=== PATIENT | female | born 1975 | race Hispanic/Latino ===

== ENCOUNTER → 2023-09-17 07:52 | Outpatient (REF) | payer OTHER, SELFPAY ==
[2023-09-17 08:59] LABS: HDL Cholesterol 35 mg/dl; LDL Cholesterol, Calculated 80 mg/dl; Total Cholesterol 156 mg/dl (50-199); Triglyceride 205 mg/dl (10-149); Very Low Density Lipoprotein 41 mg/dl (0-30)
[2023-09-17 09:16] LABS: Free T3 3.41 pg/ml (2.77-5.27); Free T4 1.03 ng/dl (0.78-2.19); Vitamin D, 25-OH*** 37.4 ng/mL (30-80)
[2023-09-17 09:28] LABS: TSH 2.11 uIU/ml (0.47-4.68)
== END ==
LOC: REG 07:52
PROVIDERS: ATTENDING PHYSICIAN Nurse Practitioner Adult Health
DX: E05.90 Thyrotoxicosis, unspecified without thyrotoxic crisis or storm (principal); E78.1 Pure hyperglyceridemia; E55.9 Vitamin D deficiency, unspecified
CPT/HCPCS: 80061; 82306; 84439; 84443; 84481

== ENCOUNTER → 2024-01-03 09:18 | Outpatient (REF) | payer OTHER, SELFPAY ==
[2024-01-03 10:10] LABS: Hematocrit 38.5 % (37.0-47.0); Hemoglobin 13.2 g/dL (12.0-16.0); Mean Corp Hgb Conc. 34.3 g/dL (33.0-37.0); Mean Corpuscular Hgb 30.6 pg (27.0-31.0); Mean Corpuscular Volume 89.1 fL (81.0-99.0); Mean Platelet Volume 10.1 fL (7.4-10.4); Platelet Count 264 10^3/uL (130-400); Red Blood Cell Count 4.32 10^6/uL (4.20-5.40); Red Cell Dist. Width 12.2 % (11.5-14.5); White Blood Cell Count 6.3 10^3/uL (4.8-10.8)
[2024-01-03 10:49] LABS: ALT (SGPT) 35 U/L (0-35); AST (SGOT) 25 U/L (14-36); Albumin 4.3 g/dl (3.5-5.0); Alkaline Phosphatase 78 U/L (38-126); Blood Urea Nitrogen 18 mg/dl (7-17); Calcium 9.5 mg/dl (8.4-10.2); Carbon Dioxide 26 mmol/L (22-30); Chloride 106 mmol/L (98-107); Glucose 98 mg/dl (70-99); Potassium 4.4 mmol/L (3.5-5.1); Sodium 141 mmol/L (135-145); Total Bilirubin 0.4 mg/dl (0.2-1.3); Total Protein 7.4 g/dl (6.3-8.2); eGFR > 60.00
[2024-01-03 11:02] LABS: Free T3 4.06 pg/ml (2.77-5.27); Free T4 0.93 ng/dl (0.78-2.19)
[2024-01-03 11:15] LABS: TSH 1.08 uIU/ml (0.47-4.68)
== END ==
LOC: CLINIC 09:18
PROVIDERS: ATTENDING PHYSICIAN Nurse Practitioner Adult Health
DX: E05.90 Thyrotoxicosis, unspecified without thyrotoxic crisis or storm (principal); D50.9 Iron deficiency anemia, unspecified
CPT/HCPCS: 36415; 80053; 84439; 84443; 84481; 85027

== ENCOUNTER → 2024-04-03 11:40 | Outpatient (REF) | payer OTHER, SELFPAY ==
[2024-04-03 13:46] LABS: HDL Cholesterol 39 mg/dl; LDL Cholesterol, Calculated 97 mg/dl; Total Cholesterol 177 mg/dl (50-199); Triglyceride 205 mg/dl (10-149); Very Low Density Lipoprotein 41 mg/dl (0-30)
[2024-04-03 14:12] LABS: Free T4 1.11 ng/dl (0.78-2.19); Vitamin D, 25-OH*** 30.5 ng/mL (30-80)
[2024-04-03 14:13] LABS: Free T3 3.74 pg/ml (2.77-5.27)
[2024-04-03 14:25] LABS: TSH 0.46 uIU/ml (0.47-4.68)
== END ==
LOC: CLINIC 11:40
PROVIDERS: ATTENDING PHYSICIAN Nurse Practitioner Adult Health
DX: E05.90 Thyrotoxicosis, unspecified without thyrotoxic crisis or storm (principal); E55.9 Vitamin D deficiency, unspecified; E78.1 Pure hyperglyceridemia
CPT/HCPCS: 36415; 80061; 82306; 84439; 84443; 84481

== ENCOUNTER → 2024-06-02 09:39 | Outpatient (REF) | payer OTHER, SELFPAY ==
[2024-06-02 13:22] LABS: Free T3 3.75 pg/ml (2.77-5.27)
[2024-06-02 13:36] LABS: TSH 0.34 uIU/ml (0.47-4.68)
== END ==
LOC: REG 09:39
PROVIDERS: ATTENDING PHYSICIAN Nurse Practitioner Adult Health
DX: E05.90 Thyrotoxicosis, unspecified without thyrotoxic crisis or storm (principal)
CPT/HCPCS: 36415; 84439; 84443; 84481

== ENCOUNTER → 2024-09-04 10:33 | Outpatient (REF) | payer OTHER, SELFPAY ==
[2024-09-04 10:58] LABS: Hemoglobin 13.1 g/dL (12.0-16.0); Mean Corp Hgb Conc. 33.6 g/dL (33.0-37.0); Mean Corpuscular Hgb 28.8 pg (27.0-31.0); Mean Corpuscular Volume 85.7 fL (81.0-99.0); Mean Platelet Volume 9.4 fL (7.4-10.4); Platelet Count 293 10^3/uL (130-400); Red Blood Cell Count 4.55 10^6/uL (4.20-5.40); Red Cell Dist. Width 15.3 % (11.5-14.5); White Blood Cell Count 7.5 10^3/uL (4.8-10.8)
[2024-09-04 11:27] LABS: ALT (SGPT) 37 U/L (0-35); AST (SGOT) 27 U/L (14-36); Albumin 4.5 g/dl (3.5-5.0); Alkaline Phosphatase 74 U/L (38-126); Blood Urea Nitrogen 13 mg/dl (7-17); Calcium 9.3 mg/dl (8.4-10.2); Carbon Dioxide 27 mmol/L (22-30); Chloride 104 mmol/L (98-107); Glucose 92 mg/dl (70-99); Potassium 4.3 mmol/L (3.5-5.1); Sodium 140 mmol/L (135-145); Total Bilirubin 0.4 mg/dl (0.2-1.3); Total Protein 7.6 g/dl (6.3-8.2); eGFR > 60.00
[2024-09-04 11:42] LABS: Free T3 4.16 pg/ml (2.77-5.27); Free T4 0.89 ng/dl (0.78-2.19)
[2024-09-04 11:55] LABS: TSH 0.86 uIU/ml (0.47-4.68)
== END ==
LOC: REG 10:33
PROVIDERS: ATTENDING PHYSICIAN Nurse Practitioner Adult Health
DX: E05.90 Thyrotoxicosis, unspecified without thyrotoxic crisis or storm (principal)
CPT/HCPCS: 36415; 80053; 84439; 84443; 84481; 85027

== ENCOUNTER → 2025-01-01 08:28 | Outpatient (REF) | payer OTHER, SELFPAY ==
[2025-01-01 09:45] LABS: Free T3 4.39 pg/ml (2.77-5.27); Free T4 1.08 ng/dl (0.78-2.19)
[2025-01-01 09:58] LABS: TSH 1.01 uIU/ml (0.47-4.68)
== END ==
LOC: REG 08:28
PROVIDERS: ATTENDING PHYSICIAN Nurse Practitioner Adult Health
DX: E05.90 Thyrotoxicosis, unspecified without thyrotoxic crisis or storm (principal)
CPT/HCPCS: 36415; 84439; 84443; 84481